=== PATIENT | female | born 2000 | race African-American/Black ===

== ENCOUNTER 2019-04-05 13:49 | Emergency (ER) | payer MEDICAID ==
[~2019-04-05] VITALS: Ht 162.6 cm; Wt 56.7 kg
[2019-04-05 20:17] VITALS: BP 115/66
== END 2019-04-05 22:35 | disposition home or self-care (01) ==
LOC: ER 13:55
DX: N63.11 Unspecified lump in the right breast, upper outer quadrant (principal)
CPT/HCPCS: 76642